=== PATIENT | female | born 1960 | race Caucasian/White ===

== ENCOUNTER → 2017-05-02 | Outpatient (CLI) | payer OTHER ==
--- NOTE | 2017-05-02 11:17 | MM ---
Reason for exam: screening (asymptomatic). Last mammogram was performed 1 year and 2 months ago. History: Patient is postmenopausal. Family history of breast cancer in maternal cousin and breast cancer in maternal grandmother. Physical Findings: A clinical breast exam by your physician is recommended on an annual basis and results should be correlated with mammographic findings. MG Screening Mammo w CAD Bilateral CC and MLO view(s) were taken. Prior study comparison: March 07, 2016, bilateral MG screening mammo w CAD. February 25, 2015, bilateral MG screening mammo w CAD. December 04, 2013, bilateral digital screening mammo w/CAD. The breast tissue is heterogeneously dense. This may lower the sensitivity of mammography. There is no discrete abnormality. ASSESSMENT: Negative, BI-RAD 1 RECOMMENDATION: Routine screening mammogram of both breasts in 1 year.
== END | disposition home or self-care (01) ==
LOC: RADMAMWWP 07:06
PROVIDERS: ATTEND Internal Medicine
DX: Z12.31 Encounter for screening mammogram for malignant neoplasm of breast (principal)

== ENCOUNTER → 2018-05-05 | Outpatient (CLI) | payer OTHER ==
--- NOTE | 2018-05-06 08:35 | MM ---
Reason for exam: screening (asymptomatic). Last mammogram was performed 1 year ago. History: Patient is postmenopausal. Family history of breast cancer in maternal cousin and breast cancer in maternal grandmother. Physical Findings: A clinical breast exam by your physician is recommended on an annual basis and results should be correlated with mammographic findings. MG Screening Mammo w CAD Bilateral CC and MLO view(s) were taken. Prior study comparison: May 02, 2017, bilateral MG screening mammo w CAD. March 07, 2016, bilateral MG screening mammo w CAD. The breast tissue is heterogeneously dense. This may lower the sensitivity of mammography. No significant changes when compared with prior studies. ASSESSMENT: Benign, BI-RAD 2 RECOMMENDATION: Routine screening mammogram of both breasts in 1 year.
== END | disposition home or self-care (01) ==
LOC: RADMAMWWP 07:02
PROVIDERS: ATTEND Family Medicine
DX: Z12.31 Encounter for screening mammogram for malignant neoplasm of breast (principal)
CPT/HCPCS: 77067

== ENCOUNTER → 2019-07-02 | Outpatient (CLI) | payer OTHER ==
--- NOTE | 2019-07-02 13:27 | MM ---
Reason for exam: screening (asymptomatic). Last mammogram was performed 1 year and 2 months ago. History: Patient is postmenopausal. Family history of breast cancer in maternal cousin and breast cancer in maternal grandmother. Physical Findings: A clinical breast exam by your physician is recommended on an annual basis and results should be correlated with mammographic findings. MG Screening Mammo w CAD Bilateral CC and MLO view(s) were taken. Prior study comparison: May 05, 2018, bilateral MG screening mammo w CAD. May 02, 2017, bilateral MG screening mammo w CAD. The breast tissue is heterogeneously dense. This may lower the sensitivity of mammography. There is no discrete abnormality. ASSESSMENT: Negative, BI-RAD 1 RECOMMENDATION: Routine screening mammogram of both breasts in 1 year.
== END | disposition home or self-care (01) ==
LOC: RADMAMWWP 09:21
PROVIDERS: ATTEND Family Medicine
DX: Z12.31 Encounter for screening mammogram for malignant neoplasm of breast (principal)
CPT/HCPCS: 77067

== ENCOUNTER → 2019-11-30 | Outpatient (CLI) | payer OTHER ==
--- NOTE | 2019-11-30 15:58 | US ---
EXAMINATION TYPE: US pelvic complete DATE OF EXAM: 11/30/2019 COMPARISON: CT done same day CLINICAL HISTORY: R93.[address], R10.[address] today, 4, para 3, mis carriage 1, history of 3 c-sections and tubal ligation TECHNIQUE: Transabdominal sonographic images of the pelvis were acquired. Date of LMP: 4 years ago EXAM MEASUREMENTS: Uterus: 27.8 x 10.4 x 14.9 cm Endometrial Stripe: 10.5 cm Right Ovary: not seen Left Ovary: not seen 1. Uterus: enlarged 2. Endometrium: thickened, fluid filled 3. Right Ovary: not seen due to enlarged uterus 4. Left Ovary: not seen due to enlarged uterus 5. Bilateral Adnexa: wnl 6. Posterior cul-de-sac: wnl Midline structures that is centrally fluid-filled measures up to 27 cm with a fluid cavity measuring up to 10.5 cm on sagittal imaging. This is presumed to represent the uterus as it is midline however pelvis is not included on the CT of the same date and ovaries are not seen and therefore a less likel y possibility of ovarian mass cannot be excluded. IMPRESSION: 1. Grossly enlarged uterus measuring up to 27.8 cm with extensive amount of central fluid. Findings a ppear to relate to hydrocolpos and could be on the basis of cervical cancer, cervical stenosis, or en dometrial carcinoma. 2. The ovaries are not seen. The above mass is midline and presumed to represent the uterus in correl ation with the prior CT. Ovarian mass is much less likely.
== END | disposition home or self-care (01) ==
LOC: RADUSWWP 15:14
PROVIDERS: ATTEND Family Medicine
DX: N85.2 Hypertrophy of uterus (principal); N89.8 Other specified noninflammatory disorders of vagina
CPT/HCPCS: 76856

== ENCOUNTER → 2019-11-30 | Outpatient (CLI) | payer OTHER ==
--- NOTE | 2019-11-30 13:42 | CT ---
EXAMINATION TYPE: CT abdomen wo con DATE OF EXAM: 11/30/2019 COMPARISON: None HISTORY: 59-year-old female Right upper quadrant abdominal pain and frequent urination. TECHNIQUE: Contiguous axial scanning of the abdomen without IV contrast. Coronal and sagittal reconst ructions performed. CT DLP: 953 mGycm Automated exposure control for dose reduction was used. FINDINGS: Heart normal size without pericardial effusion. Lung bases clear without pleural effusion. Liver borderline in size at 17.4 cm. Otherwise, noncontrast appearance of the liver, gallbladder, adr enal glands, kidneys, spleen, and pancreas show no gross abnormality. A few scattered mesenteric lymph nodes measuring up to 9 mm a nonspecific, probably reactive. No dilated small bowel, free fluid, or free air. Mild stool burden. Partially visualized severe distention of the uterine cavity up to 9.5 cm AP and 14.9 cm wide. The ut erus is also markedly enlarged extending to the mid abdominal level, above the umbilicus, to the lowe r pole of the kidneys. There is a 2.9 cm subserosal fibroid along the right lateral uterine body. Pelvis is not imaged. Bones: No osseous destructive process. IMPRESSION: 1. NOTE THAT THE EXAM IS LIMITED ONLY THE ABDOMEN IS IMAGED. 2. MARKEDLY ENLARGED, PARTIALLY VISUALIZED UTERUS. THIS IS SECONDARY TO SEVERE DISTENTION OF THE [place] RINE CAVITY UP TO 14.9 CM WIDE AND 9.5 CM AP. THE FUNDUS OF THE UTERUS REACHES THE MID ABDOMEN, ABOVE THE UMBILICUS, TO THE LEVEL OF THE LOWER POLE OF THE KIDNEYS. FINDINGS COULD BE SECONDARY TO ENDOMET RIAL ABNORMALITY/NEOPLASM OR HYDROMETRA FROM MALIGNANT OR BENIGN CERVICAL STENOSIS. 3. PELVIC ULTRASOUND RECOMMENDED TO FURTHER EVALUATE. A
== END | disposition home or self-care (01) ==
LOC: RADCTMAIN 12:37
PROVIDERS: ATTEND Family Medicine
DX: N85.2 Hypertrophy of uterus (principal)
CPT/HCPCS: 74150

== ENCOUNTER → 2020-06-06 | Outpatient (CLI) | payer OTHER ==
--- NOTE | 2020-06-06 10:34 | US ---
EXAMINATION TYPE: US venous doppler duplex LE RT DATE OF EXAM: 06/06/2020 10:24 AM COMPARISON: NONE CLINICAL HISTORY: R22.41 SWELLING PAIN RT. SIDE PERFORMED: Right TECHNIQUE: The lower extremity deep venous system is examined utilizing real time linear array sonog chepe with graded compression, doppler sonography and color-flow sonography. VESSELS IMAGED: External Iliac Vein (EIV) Common Femoral Vein Deep Femoral Vein Greater Saphenous Vein * Femoral Vein Popliteal Vein Small Saphenous Vein * Proximal Calf Veins (* superficial vessels) Right Leg: Negative for DVT IMPRESSION: No evidence for DVT at the time.
[2020-06-06 10:55] LABS: Anisocytosis Slight; HCT 32.6 % (34.0-46.0); HGB 10.3 gm/dL (11.4-16.0); MCH 28.7 pg (25.0-35.0); MCHC 31.6 g/dL (31.0-37.0); Platelet Count 162 k/uL (150-450); RBC 3.58 m/uL (3.80-5.40); RDW 16.8 % (11.5-15.5); WBC 5.3 k/uL (3.8-10.6)
--- NOTE | 2020-06-06 14:17 | XR ---
EXAMINATION TYPE: XR tibia fibula RT DATE OF EXAM: 06/06/2020 CLINICAL HISTORY: pain TECHNIQUE: AP and lateral images of the right tibia and fibula are obtained. COMPARISON: None. FINDINGS: There is no acute fracture/dislocation evident. The joint spaces appear within normal isaacs its. The overlying soft tissue appears unremarkable. IMPRESSION: There is no acute fracture or dislocation seen. ICD 10 NO FRACTURE, INITIAL EVALUATION
--- NOTE | 2020-06-06 15:04 | XR ---
EXAMINATION TYPE: XR ankle complete RT DATE OF EXAM: 06/06/2020 COMPARISON: NONE HISTORY: Pain TECHNIQUE: Frontal, lateral and oblique images of the right ankle are obtained. COMPARISON: None. FINDINGS: There is no acute fracture/dislocation evident. The joint spaces appear within normal isaacs its. The overlying soft tissue appears unremarkable. Plantar calcaneal spur formation seen. IMPRESSION: There is no acute fracture or dislocation seen.
== END | disposition home or self-care (01) ==
LOC: RADUSWWP 10:03
PROVIDERS: ATTEND Family Medicine
DX: R22.41 Localized swelling, mass and lump, right lower limb (principal)
CPT/HCPCS: 85027; 85379

== ENCOUNTER → 2020-07-22 | Outpatient (CLI) | payer OTHER ==
--- NOTE | 2020-07-26 07:21 | MM ---
Reason for exam: screening (asymptomatic). Last mammogram was performed 1 year and 1 month ago. History: Patient is postmenopausal. Family history of breast cancer in maternal cousin and breast cancer in maternal grandmother. Physical Findings: A clinical breast exam by your physician is recommended on an annual basis and results should be correlated with mammographic findings. MG 3D Screening Mammo W/Cad Bilateral CC and MLO view(s) were taken. Prior study comparison: July 02, 2019, bilateral MG screening mammo w CAD. May 05, 2018, bilateral MG screening mammo w CAD. The breast tissue is heterogeneously dense. This may lower the sensitivity of mammography. No significant changes when compared with prior studies. ASSESSMENT: Negative, BI-RAD 1 RECOMMENDATION: Routine screening mammogram of both breasts in 1 year.
== END | disposition home or self-care (01) ==
LOC: RADMAMWWP 14:07
PROVIDERS: ATTEND Family Medicine
DX: Z12.31 Encounter for screening mammogram for malignant neoplasm of breast (principal)
CPT/HCPCS: 77063; 77067

== ENCOUNTER → 2021-09-19 | Outpatient (CLI) | payer OTHER ==
--- NOTE | 2021-09-21 10:25 | MM ---
Reason for exam: screening (asymptomatic). Last mammogram was performed 1 year and 2 months ago. History: Patient is postmenopausal and history of other cancer. Family history of breast cancer in maternal cousin and breast cancer in maternal grandmother. Physical Findings: A clinical breast exam by your physician is recommended on an annual basis and results should be correlated with mammographic findings. MG Screening Mammo w CAD Bilateral CC and MLO view(s) were taken. Prior study comparison: July 22, 2020, bilateral MG 3d screening mammo w/cad. July 02, 2019, bilateral MG screening mammo w CAD. May 05, 2018, bilateral MG screening mammo w CAD. May 02, 2017, bilateral MG screening mammo w CAD. The breast tissue is heterogeneously dense. This may lower the sensitivity of mammography. No significant changes when compared with prior studies. ASSESSMENT: Benign, BI-RAD 2 RECOMMENDATION: Routine screening mammogram of both breasts in 1 year.
== END | disposition home or self-care (01) ==
LOC: RADMAMWWP 13:09
PROVIDERS: ATTEND Obstetrics & Gynecology Gynecology
DX: Z12.31 Encounter for screening mammogram for malignant neoplasm of breast (principal); Z80.3 Family history of malignant neoplasm of breast
CPT/HCPCS: 77067

== ENCOUNTER → 2022-09-20 | Outpatient (CLI) | payer OTHER ==
--- NOTE | 2022-09-21 07:48 | MM ---
Reason for Exam: Screening (asymptomatic). Last screening mammogram was performed 12 month(s) ago. Patient History: Menarche at age 14. First Full-Term at age 22. Left ovary removed at age 60. Right ovary removed at age 60. Hysterectomy at age 60. Postmenopausal. Other cancer, age 59. Previous chemotherapy at age 60. Maternal grandmother had breast cancer at or over age 50. Maternal cousin had breast cancer, age 30. Mother had ovarian cancer at or over age 50. Risk Values: Amy 5 year model risk: 1.2%. NCI Lifetime model risk: 5.7%. Prior Study Comparison: 07/02/2019 Bilateral Screening Mammogram, [facility]. 07/22/2020 Bilateral Screening Mammogram, [facility]. 09/19/2021 Bilateral Screening Mammogram, [facility]. Tissue Density: There are scattered fibroglandular densities. Findings: Analyzed By CAD. There is no suspicious group of microcalcifications or new suspicious mass in either breast. Overall Assessment: Negative, BI-RAD 1 Management: Screening Mammogram of both breasts in 1 year. A clinical breast exam by your physician is recommended on an annual basis and results should be correlated with mammographic findings. Electronically signed and approved by: Ashwin Guerrier M.D. Radiologis
== END | disposition home or self-care (01) ==
LOC: RADMAMWWP 09:10
PROVIDERS: ATTEND Obstetrics & Gynecology Gynecology
DX: Z12.31 Encounter for screening mammogram for malignant neoplasm of breast (principal); Z78.0 Asymptomatic menopausal state; Z80.3 Family history of malignant neoplasm of breast
CPT/HCPCS: 77067

== ENCOUNTER → 2023-09-23 | Outpatient (CLI) | payer OTHER ==
--- NOTE | 2023-09-24 18:46 | MM ---
Reason for Exam: Screening (asymptomatic). Last screening mammogram was performed 12 month(s) ago. Patient History: Menarche at age 14. First Full-Term at age 22. Left ovary removed at age 60. Right ovary removed at age 60. Hysterectomy at age 60. Postmenopausal. Other cancer, age 59. Previous chest radiation therapy at age 60. Previous chemotherapy at age 60. Maternal grandmother had breast cancer at or over age 50. Maternal cousin had breast cancer, age 30. Mother had ovarian cancer at or over age 50. Risk Values: Amy 5 year model risk: 1.3%. NCI Lifetime model risk: 5.5%. Prior Study Comparison: 07/22/2020 Bilateral Screening Mammogram, [facility]. 09/19/2021 Bilateral Screening Mammogram, [facility]. 09/20/2022 Bilateral MG screening mammo w CAD, [facility]. Tissue Density: The breast tissue is heterogeneously dense. This may lower the sensitivity of mammography. Findings: Analyzed By CAD. There is no suspicious group of microcalcifications or new suspicious mass in either breast. Overall Assessment: Negative, BI-RAD 1 Management: Screening Mammogram of both breasts in 1 year. . Patient should continue monthly self-breast exams. A clinical breast exam by your physician is recommended on an annual basis. This exam should not preclude additional follow-up of suspicious palpable abnormalities. Note on Amy scores and lifetime risk: 1. A Amy score greater than 3% is considered moderate risk. If this is the case, consider specialist referral to assess eligibility for a risk reducing agent. 2. If overall lifetime risk for the development of breast cancer is 20% or higher, the patient may qualify for future screening with alternating mammogram and breast MRI. Electronically signed and approved by: Nicolle Gutierrez M.D. Radiologist
== END | disposition home or self-care (01) ==
LOC: RADMAMWWP 13:05
PROVIDERS: ATTEND Family Medicine
DX: Z12.31 Encounter for screening mammogram for malignant neoplasm of breast (principal); Z78.0 Asymptomatic menopausal state; Z80.3 Family history of malignant neoplasm of breast
CPT/HCPCS: 77067